=== PATIENT | male | born 1955 | race Caucasian/White ===

== ENCOUNTER 2019-03-08 06:15 | Day surgery (SDC) | payer OTHER ==
[2019-03-01 11:22] VITALS: BMI 22.5
[2019-03-08] MEDS ORDERED: fentaNYL CITRATE 250 MCG/5 ML VIAL ONE (06:59)
[2019-03-08] MEDS ORDERED: ePHEDrine SULFATE 50 MG/1 ML AMPULE ONE ×2 (06:59→09:20)
[2019-03-08] MEDS ORDERED: SUCCINYLCHOLINE CHLORIDE 200 MG/10 ML SYRINGE ONE (07:00)
[2019-03-08] MEDS ORDERED: PROPOFOL 20 ML ONE ×6 (07:00→07:45)
[2019-03-08] MEDS ORDERED: ROCURONIUM BROMIDE 50 MG/5 ML SYRINGE ONE ×2 (07:00)
[2019-03-08] MEDS ORDERED: MIDAZOLAM HCL 2 MG/2 ML SINGLE DOSE VIAL ONE ×2 (07:00→07:06)
[2019-03-08] MEDS ORDERED: DEXAMETHASONE SOD PHOSPHATE/PF 10 MG/ML SDV ONE (07:05)
[2019-03-08] MEDS ORDERED: BUPIVACAINE HCL/PF 0.5% (5 MG/ML) 30 ML VIAL IJ ONE (07:05)
[2019-03-08] MEDS ORDERED: DEXAMETHASONE SOD PHOSPHATE 4 MG/1 ML VIAL ONE (07:07)
[2019-03-08] MEDS ORDERED: ONDANSETRON 4 MG/2 ML VIAL ONE (07:07)
[2019-03-08] MEDS ORDERED: GELATIN, ABSORBABLE 12-7MM EACH SPONGE TP ONE (07:15)
[2019-03-08] MEDS ORDERED: LIDOCAINE 1%/EPI 1:100000 (20 ML MULTI DOSE VIAL) ONE (07:16)
[2019-03-08] MEDS ORDERED: THROMBIN (RECOMBINANT) 5,000 UNIT VIAL TP ONE (07:17)
[2019-03-08] MEDS ORDERED: oxyCODONE HCL 10 MG SUSTAINED ACTING TABLET PO ONE (07:40)
--- NOTE | 2019-03-08 08:19 | HP ---
Admitting History and Physical - Admission History of Present Illness: The patient is a 63 yo male who presents today for surgery with Dr. Pompa. He states that 20 years ago he injured his shoulder from a snowboarding fall. Over the years he has had right should neck pain. He has had several injections and was about to have an epidural for the pain and was referred to Dr. Pompa for an evaluation. The patient is having pain symptoms and occasional right hand tingling/numbness. No difficulties with dropping objects. He has had a right neck dissection in the past for cancer. Occasionally if he drinks liquids too fast, he has problems swallowing. 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 No: Deep Vein Thrombosis Pulmonary: No: Asthma, Sleep Apnea Gastrointestinal: Yes: Constipation, GERD Renal/: No: Renal Failure, Hematuria, UTI Musculoskeletal: Yes: Other (has unsteardy gait and difficulty with lifting his left foot with ambulation.) Dermatology: Yes: Other (HPV/right neck dissection with partial glossectomy.) - Past Surgical History Additional Past Surgical History: right neck dissection with partial glossectomy/chemotherapy, tonsillectomy - Smoking History Smoking history: Never smoked Have you smoked in the past 12 months: No - Alcohol/Substance Use Hx Alcohol Use: Yes (social) Home Medications - Allergies Allergies/Adverse Reactions: Allergies Allergy/AdvReac Type Severity Reaction Status Date / Time Penicillins Allergy Hives Verified 03/01/19 11:10 ragweed pollen Allergy Verified 03/01/19 11:10 - Home Medications Home Medications: Ambulatory Orders Atorvastatin Ca [Lipitor] 10 mg PO DAILY 03/01/19 Docusate Sodium [Colace -] 100 mg PO BID #14 capsule 03/08/19 Famotidine [Pepcid] 20 mg PO ASDIR PRN 03/08/19 Review of Systems - Review of Systems Constitutional: denies: Chills, Fever Cardiovascular: denies: Chest Pain, Palpitations, Shortness of Breath Respiratory: denies: Cough, SOB Gastrointestinal: reports: Constipation, Other (GERD-uses zantac) Integumentary: reports: Bruising Neurological: denies: Seizure (gait unsteady) Hematology/Lymphatic: denies: Easily Bruised, Excessive Bleeding Physical Examination Vital Signs: Vital Signs Temperature 97.7 F 03/08/19 06:59 Pulse Rate 56 L 03/08/19 06:59 Respiratory Rate 18 03/08/19 06:59 Blood Pressure 133/82 03/08/19 06:59 O2 Sat by Pulse Oximetry (%) 96 03/08/19 06:59 Constitutional: Yes: Calm. No: No Distress Eyes: No: Conjunctiva Clear, Sclera Icterus HENT: Yes: Normocephalic, Other (healed right neck scar) Cardiovascular: Yes: Regular Rate and Rhythm Respiratory: Yes: Regular, CTA Bilaterally Gastrointestinal: Yes: Normal Bowel Sounds, Soft Extremities: No: Calf Tenderness Edema: No Peripheral Pulses WNL: Yes Peripheral Pulses: Left Doralis Pedis: 2+, Right Dorsalis Pedis: 2+ Wound/Incision: Yes: Clean/Dry, Well Approximated Neurological: Yes: WNL, Alert, Oriented ...Motor Strength: WNL, LUE, LLE, RUE, RLE Psychiatric: Yes: WNL, Alert, Oriented Assessment/Plan 63 yo male plan for ACDF C#-4 for cervcial stenosis/myelopathy Oxycontin x 1 this am IV abx at times of surgery DVT ppx with SCDs/early ambulation D/w Dr. Pompa
[2019-03-08] MEDS ORDERED: LIDOCAINE HCL 4% PRESERVE-FREE 5 ML AMP ONE (08:34)
[2019-03-08] MEDS ORDERED: LIDOCAINE 1%/EPI 1:100000 (50 ML MULTI DOSE VIAL) INF ONE (09:23)
[2019-03-08] MEDS ORDERED: GELATIN SPONGE,ABSORBABLE 1 GM PACKET TP ONE (10:25)
[2019-03-08] MEDS ORDERED: THROMBIN (BOVINE) 5,000 UNIT VIAL TP ONE (10:25)
[2019-03-08] MEDS ORDERED: ONDANSETRON 4 MG/2 ML VIAL IVPUSH PRN (10:43)
[2019-03-08] MEDS ORDERED: oxyCODONE HCL 5 MG TABLET PO PRN ×2 (10:43)
[2019-03-08] MEDS ORDERED: LACTATED RINGERS SOLUTION 1,000 ML IV SCH (10:45)
[2019-03-08] MEDS ORDERED: RANITIDINE HCL 150 MG TABLET (FP) PO PRN (10:48)
--- NOTE | 2019-03-08 10:51 | OP ---
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
--- NOTE | 2019-03-08 10:53 | SURG ---
Surgery Pastry Cook Note Pastry Cook: Becky Obrien PA-C Date of Service: 03/08/19 Diagnosis: cervcial stenosis C3-4, myelopathy Procedure: anterior cervcial disectomy fusion of C3-4 with neuromonitoring and allograft I was present for the entirety of the operative procedure. For further detail, please refer to operative report.
[2019-03-08] MEDS ORDERED: ACETAMINOPHEN INJECTION 100 ML IVPB ONE (11:18)
[2019-03-08] MEDS ORDERED: diazePAM 2 MG TABLET PO SCH (12:00)
[2019-03-08] MEDS ORDERED: ACETAMINOPHEN 1000 MG/100 ML VIAL (NON FORMULARY) IVPB ONE (12:00)
[2019-03-08] MEDS: diazePAM 2 MG TABLET PO SCH ×2 (15:11→22:41)
[2019-03-08] MEDS ORDERED: CEFAZOLIN 1 GM/D5W 1 GM/50 ML BAG IVPB SCH (17:00)
[2019-03-08] MEDS: RANITIDINE HCL 150 MG TABLET (FP) PO PRN (19:58)
[2019-03-08] MEDS: DOCUSATE SODIUM 100 MG CAPSULE (FP) PO SCH (21:19)
[2019-03-08] MEDS ORDERED: ATORVASTATIN CA 10 MG TABLET (FP) PO SCH (22:00)
[2019-03-09] MEDS: ACETAMINOPHEN 500 MG TABLET (FP) PO SCH ×2 (00:09→06:31)
[2019-03-09] MEDS: diazePAM 2 MG TABLET PO SCH (06:30)
[2019-03-09] MEDS: DOCUSATE SODIUM 100 MG CAPSULE (FP) PO SCH (09:27)
[2019-03-09] MEDS: RANITIDINE HCL 150 MG TABLET (FP) PO PRN (09:27)
[2019-03-09] MEDS ORDERED: DEXAMETHASONE SOD PHOSPHATE 4 MG/1 ML VIAL IVPB ONE ×2 (09:30→10:00)
--- NOTE | 2019-03-09 10:45 | DS ---
Physical Exam: SUBJECTIVE: Patient seen and examined this am. He states that his gait feels better. Pain in shoulders improved. Is having some difficulty with swallowing but able to swallow solid food. OBJECTIVE: Vital Signs Temperature 98.0 F 03/09/19 06:00 Pulse Rate 67 03/09/19 06:00 Respiratory Rate 16 03/09/19 07:28 Blood Pressure 114/60 03/09/19 06:00 O2 Sat by Pulse Oximetry (%) 95 03/09/19 07:28 PHYSICAL EXAM GENERAL: The patient is awake, alert, and fully oriented, in no acute distress. NECK: soft, no ecchymosis or swelling noted. Dressing c/d/i. Soft collar in place. No stridor LUNGS: Breath sounds equal, clear to auscultation bilaterally. HEART: Regular rate and rhythm. ABDOMEN: Soft, nontender, nondistended. EXTREMITIES: 2+ pulses, warm, well-perfused, no edema. NEUROLOGICAL: Normal speech, gait not observed. LABS HOSPITAL COURSE: The patient was admitted to the Med-Surg Unit after an elective repair of their cervical stenosis, myelopathy. Now, s/p ACDF C3-4. The day of surgery, the patient ambulated the hallways with assistance. Narcotic and non-narcotic pain management control was achieved with an oral and IV approach. An xray was obtained and confirmed hardware placement at C3-4, no fractures or dislocations. The patient was given intra-op steriods and IV steroids x1 prior to discharge. He was sent home with a medrol dose malik and instructions to follow up with speech and swallow as an outpatient if symptoms continued. He spoke to Dr. Pompa prior to discharge and was feeling like his swallowing was improving. Elizabeth-operative IV ABX were administered. DVT prophylaxis was achieved with SCDs and early ambulation. The patient ambulated with Physical Therapy and no services were recommended upon discharge. Narcotic scripts and or muscle relaxants were checked with [facility] ASSOCIATE ACCOUNT EXECUTIVE prior to escibe. The discharge instructions and an oral pain management plan were reviewed with the patient. All questions answered. Above plan discussed with Dr. Pompa and agreed. Date of Admission:03/08/19 Date of Discharge: 03/09/19 Minutes to complete discharge: 30 Visit type - Case Type Case Type: Scheduled - Emergency Emergency Visit: No - New patient This patient is new to me today: No
[2019-03-09] MEDS ORDERED: diazePAM 2 MG TABLET PO ONE (13:00)
[2019-03-09] MEDS ORDERED: ACETAMINOPHEN 650 MG/20.3 ML ORAL SOLUTION (CUPS) PO ONE (13:00)
[2019-03-09 13:55] VITALS: BP 116/60; PULSE 76; TEMP 98
--- NOTE | 2019-03-09 14:05 | OP ---
PREOPERATIVE DIAGNOSIS: Cervical stenosis. POSTOPERATIVE DIAGNOSIS: Cervical stenosis. PROCEDURE PERFORMED: 1. Anterior cervical diskectomy and fusion, C3-4. 2. Placement of prosthetic cage. 3. Placement of instrumentation. SURGEON: Rayshawn Pompa MD PROJECT CONSULTANT: SALMA Quinn ESTIMATED BLOOD LOSS: 50 mL. IV FLUIDS: Per Anesthesia. ANESTHESIA: General/MCP block. COMPLICATIONS: There were none. DISPOSITION: Patient brought to PACU in stable condition. INDICATION FOR SURGERY: The patient is a 61-year-old gentleman who has been suffering from pain from his neck down his arms. X-rays and MRI were completed, which noted he had cervical stenosis at C3-4. He had gone through an exhaustive course of treatment for this, which included medications, physical therapy, as well as injections. Unfortunately, his pain continued to persist despite all this. At this point, risks, benefits, and alternatives were discussed and the patient consented to surgery. OPERATIVE NOTE: The patient was brought to the operating room by anesthesia staff. After appropriate patient identification was performed and general anesthesia was given, MCP block was also given. The patient was placed supine on the OR bed with his arms tucked to the sides. All areas of bony prominence were padded at this time. A shoulder roll was placed underneath the shoulders to extend his neck to the point that he could tolerate in the preoperative holding area. A needle was taped onto his neck to silke off the C3-4 level. An x-ray was taken to confirm correct. The needle was removed, 10 mL of lidocaine with epinephrine was injected into his neck. At this time, his neck was prepped and draped in a sterile manner. At this point timeout was completed. A 2-inch incision was made on the left side of his neck. Dissection was carried down to the platysma. The platysma was cut in line with the skin incision. Next, the interval between the sternocleidomastoid and strap muscles was developed. Next, the interval between the carotid sheath and tracheal esophagus was developed. The needle was placed into the C3-4 disk. X-ray was taken to confirm this was correct. The needle was removed. The longus colli muscles were elevated off and retractor blades were placed in. A [place] pin was placed into the body of C3 and C4. A knife was used to incise the disk and distraction was applied. At this point, a microscope was brought in. Using a series of pituitaries, Kerrisons, and curette, the diskectomy was completed. The endplates were decorticated at this time. A size 6 cage filled with bone graft was placed in. A screw was placed into the body of C3. A screw was placed into the body of C4. [place] pins were removed. AP and lateral x-rays confirmed the instrumentation being in good position. Final tightening was performed. The platysma was closed with a 2-0 Vicryl suture. Skin was closed with 3-0 Monocryl suture. Dermabond was applied, Steri-Strips were applied, a sterile dressing was applied. Patient was placed supine on the OR bed, brought to the PACU in stable condition. RAYSHAWN POMPA M.D. [id number]
--- NOTE | 2019-03-10 17:00 | PATH ---
Surgical Pathology Report Patient Name: IRVING GOMEZ Med. Rec. #: [id number] /Age/Gender: 1955 (Age: 63) / M Account: [id number] Location: [facility] MED-SURG Taken: 03/08/2013 Received: 03/08/2019 Reported: 03/10/2019 Physicians: Rayshawn Pompa M.D. Specimen(s) Received DISC C3-4 Clinical History Cervical stenosis, myelopathy Final Diagnosis DISC C3-4, DISCECTOMY: FRAGMENTS OF CARTILAGINOUS TISSUE WITH FOCAL DEGENERATIVE CHANGE Electronically Signed Rick Coronel M.D. Gross Description Received in formalin labeled "disc C3-4," is a 2.0 x 1.4 x 0.3 cm aggregate of cho fragments of fibrocartilaginous tissue. The specimen is entirely submitted in one cassette. 03/09/2019 saudi03/09/2019
== END 2019-03-09 13:30 | disposition home or self-care (01) ==
LOC: FASUSAT 06:15 → FASU 06:15 → FM/S 12:12 → FASUSAT 03-09 13:30
PROVIDERS: ATTEND Orthopaedic Surgery Orthopaedic Surgery of the Spine
PROC: 0RG10A0 Fusion of Cervical Vertebral Joint with Interbody Fusion Device, Anterior Approach, Anterior Column, Open Approach (ICD-10-PCS; 2019-03-08)
PROC: 0RG10K0 Fusion of Cervical Vertebral Joint with Nonautologous Tissue Substitute, Anterior Approach, Anterior Column, Open Approach (ICD-10-PCS; 2019-03-08)
PROC: 0RB30ZZ Excision of Cervical Vertebral Disc, Open Approach (ICD-10-PCS; principal; 2019-03-08 08:49)
DX: M48.02 Spinal stenosis, cervical region (principal)
CPT/HCPCS: 22551; 22845; 22853; C1889; 72050-TC-FY; 76000-TC-FY; 88304-TC; 94760; 97116-GP; 97161-GP; J0131